=== PATIENT | female | born 1980 | race Caucasian/White ===

== ENCOUNTER 2018-03-27 09:07 | Emergency (ER) | payer OTHER, SELFPAY ==
[2018-03-27] MEDS ORDERED: Ketorolac Tromethamine 60 MG/2 ML VIAL ONE (09:23)
--- NOTE | 2018-03-27 09:35 | RAD ---
LEFT ANKLE 3 VIEWS: Date: 03/27/18 HISTORY: Fall, left ankle pain. FINDINGS/IMPRESSION: There is an avulsion fracture involving the anterolateral aspect of the calcaneus. The ankle mortise is maintained. POS: PRINCESS
--- NOTE | 2018-03-27 09:37 | RAD ---
3 VIEWS LEFT FOOT: Date: 03/27/18 COMPARISON: None. HISTORY: Tripped and fell, trauma, pain. FINDINGS: Soft tissue swelling is seen overlying the lateral malleolus. There is also dorsal soft tissue swelling overlying the forefoot. On the lateral examination, there is subtle cortical irregularity involving one of the proximal metat arsals medially. There is a questionable lucency near the base of the fourth metatarsal head as well on image 2 of 3. These findings could signify fracture, but this is uncertain. IMPRESSION: Areas of soft tissue swelling. Questionable fractures involving metatarsals, which would be best asse ssed with a left foot CT examination. POS: [facility]ESS
== END 2018-03-27 10:07 | disposition home or self-care (01) ==
LOC: ERS 09:07
DX: S92.002A Unspecified fracture of left calcaneus, initial encounter for closed fracture (principal); W01.10XA Fall on same level from slipping, tripping and stumbling with subsequent striking against unspecified object, initial encounter
CPT/HCPCS: 96372; J1885